=== PATIENT | male | born 1955 | race Hispanic/Latino ===

== ENCOUNTER 2024-11-12 17:53 | Emergency (ER) | payer MEDICARE ==
[~2024-11-12] VITALS: Ht 172.7 cm; Wt 73.3 kg
[2024-11-12 18:03] VITALS: TEMP 98
[2024-11-12] MEDS ORDERED: GLIMEPIRIDE2 MG PO (18:29)
[2024-11-12] MEDS ORDERED: METFORMIN HCL500 M2 PO (18:29)
[2024-11-12] MEDS ORDERED: ROSUVASTATIN CA10 MG (18:29)
[2024-11-12] MEDS ORDERED: LISINOPRIL10 MG PO (18:29)
[2024-11-12] MEDS ORDERED: VENTOLIN HFA18 GM INH (19:25)
[2024-11-12] MEDS ORDERED: DIPHENHYDRAMINE25 M2 PO (19:25)
[2024-11-12] MEDS ORDERED: TYLENOL325 MG PO (19:25)
[2024-11-12] MEDS ORDERED: AZITHROMYCIN250 MG PO (19:25)
[2024-11-12 19:31] VITALS: PULSE 76; RESP 16
[2024-11-12] MEDS ORDERED: ROBITUSSIN COU118 M4 PO (20:13)
[2024-11-12 20:14] VITALS: BP 138/81; O2SAT 98
== END 2024-11-12 20:23 | disposition home or self-care (01) ==
LOC: FSED 18:01
DX: R05.9 Cough, unspecified (principal); J40 Bronchitis, not specified as acute or chronic; J06.9 Acute upper respiratory infection, unspecified; E11.65 Type 2 diabetes mellitus with hyperglycemia; I10 Essential (primary) hypertension; R53.81 Other malaise; H91.3 Deaf nonspeaking, not elsewhere classified; Z11.52 Encounter for screening for COVID-19; R94.31 Abnormal electrocardiogram [ECG] [EKG]
CPT/HCPCS: 0223U; 71046; 80053; 83518; 83880; 84484; 85025; 85379; 87400; 93005; 99284; J0696